=== PATIENT | female | born 1955 | race Caucasian/White ===

== ENCOUNTER 2017-11-13 06:30 | Emergency (ER) | payer OTHER ==
[~2017-11-13] VITALS: Ht 165.1 cm; Wt 63.5 kg
[~2017-11-13 06:30] MED LIST: ACETAMINOPHEN325 M1 PO; ALEVE220 M1 PO; CEFEPIME HCL1 GM IV; CEFUROXIME250 MG PO; LEVOFLOXACIN750 MG PO; MACROBID 100 M100 MG PO; MACRODANTIN100 MG PO; NITROFURANTOIN100 MG PO; OXYBUTYNIN CHLOR5 MG PO
[2017-11-13] MEDS ORDERED: CLINDAMYCIN PHOS 600 MG/ 4 ML VIAL IM ONE (07:15)
[2017-11-13] MEDS ORDERED: CLINDAMYCIN 600MG/D5W 50ML 50 ML IV ONE ×2 (07:15)
== END 2017-11-13 08:03 | disposition home or self-care (01) ==
LOC: ER 06:30
DX: K08.9 Disorder of teeth and supporting structures, unspecified (principal); K04.7 Periapical abscess without sinus
CPT/HCPCS: 93005; 99283

== ENCOUNTER → 2018-02-03 | Outpatient (CLI) | payer OTHER ==
--- NOTE | 2018-02-03 08:55 | Diagnostic Imaging Report ---
PROCEDURE:X-RAY ABDOMEN - KUB COMPARISON:Patients [facility], DX, ABDOMEN-1VIEW (KUB), 09/02/2017, 11:08. INDICATIONS:CALCULUS OF THE KIDNEY FINDINGS: Punctate calcification overlies the left kidney measuring 1-2 mm. There are no dilated loops of bowel to suggest obstruction. There are no masses. Clips in the right upper quadrant from a previous cholecystectomy. There is no evidence of free air. No acute osseous abnormalities are present. The lung bases are clear. CONCLUSION: Tiny calcification overlying the left kidney. Vasquez Bautista D.O. Dictated by: Vasquez Bautista D.O. on 02/03/2018 at 8:57 Electronically approved by: Vasquez Bautista D.O. on 02/03/2018 at 8:57
== END ==
LOC: RAD 08:18
PROVIDERS: ATTEND Urology
DX: N20.0 Calculus of kidney (principal)
CPT/HCPCS: 74018

== ENCOUNTER 2018-05-14 12:14 | Emergency (ER) | payer OTHER ==
[~2018-05-14] VITALS: Ht 165.1 cm; Wt 66.7 kg
[2018-05-14] MEDS ORDERED: SODIUM CHLORIDE 0.9% 1000ML 1,000 ML IV ONE (13:30)
[2018-05-14 13:35] LABS: CLARITY,URINE CLEAR (CLEAR); COLOR,URINE YELLOW (YELLOW); KETONES,URINE NEGATIVE (NEGATIVE); LEUKOCYTE ESTERASE ,URINE NEGATIVE (NEGATIVE); NITRITE,URINE NEGATIVE (NEGATIVE); PROTEIN,URINE DIPSTICK NEGATIVE (NEGATIVE); URINE UROBILINOGEN 0.2 mg/dL (0.2 - 1)
[2018-05-14 13:36] LABS: BILIRUBIN,URINE NEGATIVE (NEGATIVE)
[2018-05-14 13:39] LABS: BASOPHILS # (AUTO) 0.1 (0.0-0.1); BASOPHILS % 0.6 % (0.0-1.0); EOSINOPHILS # (AUTO) 0.1 (0.0-0.4); EOSINOPHILS % 1.5 % (0.0-6.0); HEMATOCRIT 38.8 % (34.2-44.1); HEMOGLOBIN 12.8 g/dL (12.0-16.0); LYMPHOCYTES # (AUTO) 1.9 (1.0-3.2); LYMPHOCYTES % 24.4 % (18.0-39.1); MEAN CORPUSCULAR HEMOGLOBIN 31.5 pg (28-32); MEAN CORPUSCULAR VOLUME 95.6 fL (81-99); MONOCYTES # (AUTO) 0.6 (0.2-0.8); MONOCYTES % 7.8 % (4.4-11.3); NEUTROPHILS # (AUTO) 5.2 (2.1-6.9); NEUTROPHILS % 65.4 % (38.7-80.0); PLATELET COUNT 220 x10e3/uL (140-360); RED BLOOD COUNT 4.06 x10e6/uL (3.6-5.1); RED CELL DISTRIBUTION WIDTH 13.1 % (11.7-14.4)
[2018-05-14 13:46] LABS: BACTERIA,URINE RARE /HPF; EPITHELIAL CELLS,URINE RARE /LPF; RBC,URINE 0-5 /HPF (0-5); WBC,URINE (MAN) 0-5 /HPF (0-5)
[2018-05-14 13:59] LABS: ALANINE AMINOTRANSFERASE 13 IU/L (0-55); ALBUMIN 4.1 g/dL (3.5-5.0); ALBUMIN/GLOBULIN RATIO 1.2 (0.8-2.0); ALKALINE PHOSPHATASE 88 IU/L (40-150); ANION GAP 11.9 mmol/L (8-16); BLOOD UREA NITROGEN 12 mg/dL (7-26); BUN/CREATININE RATIO 15 (6-25); CARBON DIOXIDE 27 mmol/L (22-29); CHLORIDE 106 mmol/L (98-107); EST GLOMERULAR FILTRATION RATE > 60 ML/MIN (60-); GLUCOSE 90 mg/dL (74-118); POTASSIUM 3.9 mmol/L (3.5-5.1); SODIUM 141 mmol/L (136-145)
--- NOTE | 2018-05-14 14:39 | Diagnostic Imaging Report ---
PROCEDURE: CT ABDOMEN AND PELVIS WITHOUT CONTRAST TECHNIQUE: The abdomen and pelvis were scanned utilizing a multidetector helical scanner from the diaphragm to the lesser trochanter after the oral administration of water. No IV contrast was administered per protocol. Coronal and sagittal multiplanar reformations were obtained. COMPARISON: Patients [facility], CT, CT ABDOMEN/PELVIS , 12/11/2016, 10:12. INDICATIONS: Left flank pain FINDINGS: ABSENCE OF INTRAVENOUS CONTRAST DECREASES SENSITIVITY FOR DETECTION OF FOCAL LESIONS AND VASCULAR PATHOLOGY. LOWER THORAX: Lung bases are grossly clear. Atherosclerotic calcification of the coronary arteries and thoracic aorta. HEPATOBILIARY: No focal hepatic lesions. No biliary ductal dilatation. Cholecystectomy clips. SPLEEN: No splenomegaly. PANCREAS: No focal masses or ductal dilatation. ADRENALS: No adrenal nodules. KIDNEYS/URETERS: 3 mm nonobstructing calculus in the left inferior pole (series 3, image 63). Punctate, nonobstructing calculus in the mid to inferior aspect (series 3, image 59). Punctate nonobstructing calculus in the right inferior pole (coronal image 46). No other renal or any ureteral calculi. No hydronephrosis, hydroureter, or evidence of obstruction. No contour abnormalities. PELVIC ORGANS/BLADDER: Bladder is unremarkable, without focal lesions, wall thickening, or bladder calculi. Uterus is absent. No adnexal masses. PERITONEUM / RETROPERITONEUM: No free air or fluid. LYMPH NODES: No lymphadenopathy. VESSELS: Atherosclerotic calcification of the abdominal aorta and iliac vessels. GI TRACT: No bowel dilation or evidence of obstruction. Appendix is well identified and normal in caliber. No pericolonic inflammatory changes. Sigmoid diverticulosis, without diverticulitis. BONES AND SOFT TISSUES: No aggressive lytic lesions. Soft tissues are grossly unremarkable. IMPRESSION: 1. no ureteral or bladder calculi, hydronephrosis, or obstruction. 2. Bilateral punctate nonobstructing calculi. 3 mm nonobstructing calculus in the left inferior pole. 3. Sigmoid diverticulosis, without diverticulitis. Ridge Guerrero M.D. Dictated by: Ridge Guerrero M.D. on 05/14/2018 at 14:43 Electronically approved by: Ridge Guerrero M.D. on 05/14/2018 at 14:43
== END 2018-05-14 16:29 | disposition home or self-care (01) ==
LOC: ER 12:14
DX: R10.9 Unspecified abdominal pain (principal); N20.0 Calculus of kidney
CPT/HCPCS: 36415; 74176; 80053; 81001; 85025; 87086; 99284; J7030

== ENCOUNTER 2018-08-31 10:54 | Inpatient (IN) | payer OTHER ==
[~2018-08-31] VITALS: Ht 167.6 cm; Wt 67.1 kg
[~2018-08-31 10:54] MED LIST changes: +BACTRIM DS TAB1 EACH PO; +CALTRATE PLUS1 EACH; +CENTRUM SILVER1 EAC3; +FENTANYL CITRATE/PF 100MCG/2 ML INJ ONE; +MIDAZOLAM HCL 2 MG/2 ML VIAL ONE
[2018-08-31] MEDS ORDERED: CEFOXITIN SOD 1 GM VIAL ONE (11:17)
[2018-08-31] MEDS ORDERED: CLINDAMYCIN 600MG / 50ML 50 ML IV ONE (11:17)
[2018-08-31] MEDS ORDERED: GENTAMICIN 80MG/NS 100 ML 200 ML IV ONE (11:17)
[2018-08-31] MEDS ORDERED: METHYLENE BLUE 1% INJ 10 ML VIAL INJ ONE (12:39)
[2018-08-31] MEDS ORDERED: ESTROGENS CONJUGATED VAGINAL CR 45 GM TUBE PV ONE (12:39)
[2018-08-31] MEDS ORDERED: BUPIVACAINE 0.25%/EPI 30ML SDV INJ ONE (12:40)
[2018-08-31] MEDS ORDERED: IOPAMIDOL 610MG/1ML 300 MG/ML VIAL IV ONE ×2 (12:40→14:47)
[2018-08-31] MEDS ORDERED: BACITRACIN 50,000 UNIT VIAL ONE (12:40)
[2018-08-31] MEDS ORDERED: HYDROMORPHONE 1MG/1ML INJ IV PRN ×2 (15:00)
[2018-08-31] MEDS ORDERED: PROMETHAZINE HCL (IM) 25 MG/ML VIAL IV PRN (15:00)
[2018-08-31] MEDS ORDERED: PROMETHAZINE HCL (IM) 25 MG/ML VIAL IM PRN (15:00)
[2018-08-31] MEDS ORDERED: HYDROCODONE/APAP 7.5MG-325MG 1 EA TAB PO PRN (15:00)
[2018-08-31] MEDS ORDERED: HYDROMORPHONE 2MG/ML 2 MG/ML ML IV PRN ×2 (15:30)
[2018-08-31] MEDS ORDERED: PROMETHAZINE 12.5MG/ NACL 0.9% 50 ML IV PRN (15:45)
[2018-08-31] MEDS ORDERED: LIDOCAINE HCL 2% LOCAL INJ 5 ML SDV VIAL INJ ONE (16:44)
[2018-08-31] MEDS ORDERED: SEVOFLURANE INHAL SOLN 250 ML PEN BTL ONE (16:44)
[2018-08-31] MEDS ORDERED: PROPOFOL IV EMULSION 10 MG/ML 20 ML VIAL ONE (16:44)
[2018-08-31] MEDS ORDERED: PHENYLEPHRINE HCL 1% 10 MG/ML VIAL ONE (16:44)
[2018-08-31] MEDS ORDERED: DEXAMETHASONE SOD PHOS INJ 4 MG/ML VIAL ONE (16:44)
[2018-08-31] MEDS ORDERED: ONDANSETRON HCL INJ 2 MG/ML VIAL ONE (16:44)
[2018-08-31 16:57] VITALS: BP 130/59
[2018-08-31 17:06] VITALS: BP 130/59
[2018-08-31] MEDS: D5.45%NS/KCL 20MEQ 1,000 ML IV SCH (17:17)
[2018-08-31 17:38] VITALS: BP 130/59
[2018-08-31] MEDS ORDERED: CEFOXITIN 1GM/ NS 50ML 50 ML IV SCH (18:00)
[2018-08-31] MEDS: CEFOXITIN SOD 1 GM VIAL IV SCH ×2 (18:21→23:09)
[2018-08-31] MEDS: ONDANSETRON HCL INJ 2 MG/ML VIAL IV PRN (19:03)
[2018-08-31] MEDS: HYDROMORPHONE 2MG/ML 2 MG/ML ML IV PRN (19:03)
[2018-08-31 19:22] VITALS: BP 115/76
[2018-08-31 20:00] VITALS: BP 115/76
[2018-09-01] VITALS (7 sets, daily range): BP systolic 90–124; BP diastolic 54–74
[2018-09-01] MEDS: D5.45%NS/KCL 20MEQ 1,000 ML IV SCH ×3 (00:28→17:54)
[2018-09-01] MEDS: HYDROMORPHONE 2MG/ML 2 MG/ML ML IV PRN (00:32)
[2018-09-01] MEDS: ONDANSETRON HCL INJ 2 MG/ML VIAL IV PRN ×2 (01:39→15:39)
[2018-09-01] MEDS: CEFOXITIN SOD 1 GM VIAL IV SCH ×4 (04:50→23:39)
[2018-09-01 04:53] LABS: BASOPHILS % 0.2 % (0.0-1.0); EOSINOPHILS % 0.1 % (0.0-6.0); HEMATOCRIT 32.2 % (34.2-44.1); HEMOGLOBIN 10.5 g/dL (12.0-16.0); LYMPHOCYTES # (AUTO) 1.4 (1.0-3.2); MEAN CORPUSCULAR HEMOGLOBIN 32.1 pg (28-32); MEAN CORPUSCULAR HGB CONC 32.6 g/dL (31-35); MEAN CORPUSCULAR VOLUME 98.5 fL (81-99); MONOCYTES # (AUTO) 0.9 (0.2-0.8); MONOCYTES % 7.4 % (4.4-11.3); NEUTROPHILS # (AUTO) 10.2 (2.1-6.9); NEUTROPHILS % 80.7 % (38.7-80.0); PLATELET COUNT 189 x10e3/uL (140-360); RED BLOOD COUNT 3.27 x10e6/uL (3.6-5.1); RED CELL DISTRIBUTION WIDTH 12.6 % (11.7-14.4)
[2018-09-01 05:14] LABS: ANION GAP 12.3 mmol/L (8-16); BLOOD UREA NITROGEN 11 mg/dL (7-26); BUN/CREATININE RATIO 15 (6-25); CALCIUM 8.8 mg/dL (8.4-10.2); CARBON DIOXIDE 24 mmol/L (22-29); CHLORIDE 106 mmol/L (98-107); CREATININE, SERUM 0.73 mg/dL (0.57-1.11); EST GLOMERULAR FILTRATION RATE > 60 ML/MIN (60-); GLUCOSE 134 mg/dL (74-118); POTASSIUM 4.3 mmol/L (3.5-5.1); SODIUM 138 mmol/L (136-145)
[2018-09-01] MEDS ORDERED: INFLUENZA VIRUS VAC SPLIT INJ 0.5 ML SYR IM ONE (09:00)
[2018-09-01 14:56] LABS: BASOPHILS % 0.3 % (0.0-1.0); EOSINOPHILS % 0.4 % (0.0-6.0); HEMATOCRIT 32.6 % (34.2-44.1); HEMOGLOBIN 10.5 g/dL (12.0-16.0); LYMPHOCYTES # (AUTO) 1.3 (1.0-3.2); LYMPHOCYTES % 12.5 % (18.0-39.1); MEAN CORPUSCULAR HEMOGLOBIN 31.7 pg (28-32); MEAN CORPUSCULAR HGB CONC 32.2 g/dL (31-35); MEAN CORPUSCULAR VOLUME 98.5 fL (81-99); MONOCYTES # (AUTO) 0.7 (0.2-0.8); MONOCYTES % 6.7 % (4.4-11.3); NEUTROPHILS # (AUTO) 8.1 (2.1-6.9); NEUTROPHILS % 79.3 % (38.7-80.0); PLATELET COUNT 176 x10e3/uL (140-360); RED BLOOD COUNT 3.31 x10e6/uL (3.6-5.1); RED CELL DISTRIBUTION WIDTH 12.6 % (11.7-14.4)
[2018-09-01 15:20] LABS: ANION GAP 12.9 mmol/L (8-16); BLOOD UREA NITROGEN 8 mg/dL (7-26); BUN/CREATININE RATIO 12 (6-25); CALCIUM 8.1 mg/dL (8.4-10.2); CARBON DIOXIDE 24 mmol/L (22-29); CHLORIDE 102 mmol/L (98-107); CREATININE, SERUM 0.68 mg/dL (0.57-1.11); EST GLOMERULAR FILTRATION RATE > 60 ML/MIN (60-); GLUCOSE 119 mg/dL (74-118); POTASSIUM 3.9 mmol/L (3.5-5.1); SODIUM 135 mmol/L (136-145)
[2018-09-02] VITALS (7 sets, daily range): BP systolic 108–119; BP diastolic 59–65
[2018-09-02] MEDS: CEFOXITIN SOD 1 GM VIAL IV SCH ×3 (05:26→13:20)
[2018-09-02 05:27] LABS: BASOPHILS % 0.2 % (0.0-1.0); EOSINOPHILS # (AUTO) 0.1 (0.0-0.4); EOSINOPHILS % 0.9 % (0.0-6.0); HEMATOCRIT 33.5 % (34.2-44.1); HEMOGLOBIN 11.1 g/dL (12.0-16.0); LYMPHOCYTES # (AUTO) 1.5 (1.0-3.2); LYMPHOCYTES % 17.4 % (18.0-39.1); MEAN CORPUSCULAR HEMOGLOBIN 32.5 pg (28-32); MEAN CORPUSCULAR HGB CONC 33.1 g/dL (31-35); MONOCYTES # (AUTO) 0.8 (0.2-0.8); MONOCYTES % 9.6 % (4.4-11.3); NEUTROPHILS # (AUTO) 6.1 (2.1-6.9); NEUTROPHILS % 71.6 % (38.7-80.0); PLATELET COUNT 158 x10e3/uL (140-360); RED BLOOD COUNT 3.42 x10e6/uL (3.6-5.1); RED CELL DISTRIBUTION WIDTH 12.5 % (11.7-14.4)
[2018-09-02 05:37] LABS: BLOOD UREA NITROGEN 6 mg/dL (7-26); BUN/CREATININE RATIO 9 (6-25); CALCIUM 8.3 mg/dL (8.4-10.2); CARBON DIOXIDE 24 mmol/L (22-29); CHLORIDE 104 mmol/L (98-107); CREATININE, SERUM 0.68 mg/dL (0.57-1.11); EST GLOMERULAR FILTRATION RATE > 60 ML/MIN (60-); GLUCOSE 105 mg/dL (74-118); SODIUM 137 mmol/L (136-145)
[2018-09-02] MEDS: D5.45%NS/KCL 20MEQ 1,000 ML IV SCH (06:49)
[2018-09-02] MEDS ORDERED: ACETAMINOPHEN/CODEINE 300MG - 30MG TAB PO PRN (10:30)
[2018-09-02] MEDS ORDERED: LEVAQUIN500 MG PO (17:29)
[2018-09-02] MEDS ORDERED: TYLENOL WITH C1 EACH PO (17:31)
--- NOTE | 2018-09-28 07:56 | Operative Report ---
DATE OF PROCEDURE: August 31, 2018 PREOPERATIVE DIAGNOSES 1. Stress-type urinary incontinence. 2. Cystocele. 3. History of urolithiasis. POSTOPERATIVE DIAGNOSES 1. Stress-type urinary incontinence. 2. Cystocele. 3. History of urolithiasis. OPERATIONS PERFORMED 1. Repair of large cystocele. 2. Utilization of a graft in cystocele repair. 3. Pubovaginal sling. 4. Cystourethroscopy with bilateral ureteral catheterization and retrograde ureteropyelography (separate procedure performed for the history of urolithiasis). 5. Interpretation of retrograde ureteropyelography. 6. Supervision of fluoroscopy. No radiologist present. ANESTHESIA: General. COMPLICATIONS: None. CAN CONVEYOR FEEDER: Mario Romano MD CLINICAL SUMMARY: Ricardo Santos is a 63-year-old woman with stress incontinence and a grade 3 cystocele. She has a history of lithotripsy for stones. She is brought for the above procedures. She is aware of the risks of bleeding, infection, injury to adjacent structures, urinary retention, need for additional procedures, and failure of the procedure. She understood all these risks and elected to proceed. OPERATIVE PROCEDURE IN DETAIL: Informed consent was verified. Ricardo Santos was properly identified, taken to the operating room, placed on the operating table in supine position. Anesthesia was uneventfully begun. The patient was then carefully and gently re-positioned in the dorsal lithotomy position with all pressure points well padded. Her abdomen, genitalia, and perineum were shaved, prepared, and draped in usual sterile fashion. Labial stay sutures were utilized. Marcaine with epinephrine was utilized to infiltrate submucosally in the midline of the anterior vaginal wall. This infiltration was followed by an incision. We then developed bilateral vaginal wall flaps. We dissected from the distal urethra to the cephalad-most extent of the anterior vaginal wall. Once we finished the lateral dissection, we pierced the endopelvic fascia bilaterally, taking care to stay lateral to avoid injury to the periurethral neurovascular complexes. Once this was performed, we utilized heavy Vicryl suture in interrupted fashion to approximate the 2 cut edges of the endopelvic fascia and performing a cystocele repair from the bladder neck to the cephalad-most extent of the vaginal dissection. This resulted in complete reduction of the patient's severe cystocele. Galicia catheter was placed. Fascia tristen graft which was hydrated in antibiotic irrigant, we then cut it to shape, took 2 heavy PDS sutures, and placed them in a helical fashion through each end of the graft. We then utilized the Voxie needle system, first on the left, then on the right. We hugged the posterior pubis and pierced through the anterior abdominal wall and then dragged along with it 1 suture pair. Once this was done bilaterally, we utilized chromic suture to secure the graft to its proper position so that it fully supports the cystocele. Then, we brought it to extend down to the distal urethra to serve as a pubovaginal sling. The Voxie lateral suture passer was then utilized to take 1 strand of each PDS suture and tunnel it suprapubically subcutaneously to join its contralateral counterpart. The sutures were then tied down to the level of the skin and the knot was allowed to fall deep within the suprapubic fat pad, thus ensuring a non-lifting, non-constricting, non-obstructing sling. Copious irrigation was performed of all incisions. The abdominal incisions were approximated with 4-0 Monocryl suture in interrupted subcuticular fashion. The vaginal incision, following minimal trimming of the vaginal wall, was approximated with heavy Vicryl suture in running fashion. The Galicia catheter was removed. Cystoscopy was performed. Panendoscopy of the urinary bladder revealed no suspicious mucosal lesions. No tumors, no stones, and no diverticula. No suspicious mucosal lesions were identified. Ureteral catheter was used to cannulate each ureter and retrograde ureteropyelograms were performed. Interpretation of retrograde ureteropyelography: Contrast was instilled in retrograde fashion bilaterally. There were no tumors, no stones, no diverticula. There were bifid collecting systems bilaterally. Unobstructed drainage was observed bilaterally fluoroscopically. The cystoscope was withdrawn. The Galicia catheter was placed. A vaginal packing was placed. Sterile dressings were applied to the suprapubic area. The labial stay sutures were removed. The patient was uneventfully reversed from anesthesia and taken to the recovery room in stable condition. There were no complications to the procedure. Patient tolerated the procedure well. We will admit the patient and plan on routine postoperative care. Job#: [id number]
== END 2018-09-02 18:10 | disposition home or self-care (01) | DRG 746 ==
LOC: OR 10:54 → PACU V 14:57 → IMCU 16:53 → MED/SURG 09-01 15:36
PROVIDERS: ADMIT Internal Medicine; ATTEND Internal Medicine
PROC: 0TSD0ZZ Reposition Urethra, Open Approach (ICD-10-PCS; 2018-08-31)
PROC: 0T788ZZ Dilation of Bilateral Ureters, Via Natural or Artificial Opening Endoscopic (ICD-10-PCS; 2018-08-31)
PROC: BT141ZZ Fluoroscopy of Kidneys, Ureters and Bladder using Low Osmolar Contrast (ICD-10-PCS; 2018-08-31)
PROC: 0JUC0JZ Supplement of Pelvic Region Subcutaneous Tissue and Fascia with Synthetic Substitute, Open Approach (ICD-10-PCS; principal; 2018-08-31 13:00)
PROC: 0UQG0ZZ Repair Vagina, Open Approach (ICD-10-PCS; 2018-08-31 13:00)
DX: N81.10 Cystocele, unspecified (principal); E87.1 Hypo-osmolality and hyponatremia; P96.89 Other specified conditions originating in the perinatal period; E66.9 Obesity, unspecified; Z68.23 Body mass index [BMI] 23.0-23.9, adult; D64.9 Anemia, unspecified; N81.6 Rectocele
CPT/HCPCS: 36415; 74420; 80048; 85025; 93005; J0694; J1100; J1580; J2001; J2250; J2370; J2405

== ENCOUNTER → 2018-12-01 | Outpatient (CLI) | payer OTHER ==
[~2018-12-01] MED LIST changes: -FENTANYL CITRATE/PF 100MCG/2 ML INJ ONE; +LEVAQUIN500 MG PO; -MIDAZOLAM HCL 2 MG/2 ML VIAL ONE; +TYLENOL WITH C1 EACH PO
--- NOTE | 2018-12-01 12:47 | Diagnostic Imaging Report ---
Exam: Abdominal film Clinical History: Renal calculi Comparison: None. DISCUSSION: 3.5 mm calcification projects over the left renal shadow. No definite calcifications projecting over the right renal shadow though evaluation is limited secondary to overlying bowel contents. No calcifications project over the expected ureteral courses. Bowel gas pattern is nonobstructive. Regional skeletal structures are grossly intact. Multiple surgical clips project over the right upper quadrant of the abdomen likely related to cholecystectomy. IMPRESSION: Left renal calculus as above. Signed by: Dr. Duarte Peacock M.D. on 12/01/2018 12:43 PM
== END ==
LOC: RAD 12:03
PROVIDERS: ATTEND Urology
DX: N20.0 Calculus of kidney (principal)
CPT/HCPCS: 74018

== ENCOUNTER → 2019-07-06 | Outpatient (CLI) | payer OTHER ==
--- NOTE | 2019-07-06 11:48 | Diagnostic Imaging Report ---
Abdomen, 1 view. History: Renal calculus. Comparison: 12/01/2018. Findings: Air is scattered throughout nondilated small and large bowel. At least 2 calcifications are projected over the left kidney, measuring 4 and 7 mm. Surgical clips are again noted in the right upper quadrant. The osseous structures are intact. IMPRESSION: Increase in number and size of left renal calculi. Signed by: Anand Duggan on 07/06/2019 11:45 AM
== END ==
LOC: RAD 10:59
PROVIDERS: ATTEND Urology
DX: N20.0 Calculus of kidney (principal)
CPT/HCPCS: 74018

== ENCOUNTER 2019-12-01 08:32 | Inpatient (IN) | payer OTHER ==
[~2019-12-01] VITALS: Ht 165.1 cm; Wt 67.6 kg
[~2019-12-01 08:32] MED LIST changes: -CALTRATE PLUS1 EACH; +CALTRATE PLUS1 EACH PO; -CENTRUM SILVER1 EAC3; +CENTRUM SILVER1 EAC3 PO
[2019-12-01] MEDS ORDERED: CEFTRIAXONE SOD 1 GM/NS 50 ML 50 ML IV STA (08:40)
[2019-12-01] MEDS ORDERED: SODIUM CHLORIDE 0.9% 1000ML 1,000 ML IV STA (08:40)
[2019-12-01] MEDS ORDERED: KETOROLAC TROMETHAMINE 30 MG/ML VIAL IV STA (08:40)
[2019-12-01] MEDS ORDERED: ONDANSETRON HCL INJ 2MG/ML 2ML 2 MG/ML VIAL IV STA (08:40)
[2019-12-01] MEDS ORDERED: MORPHINE SULFATE INJ 4 MG/ML INJ 1ML IV STA (08:40)
[2019-12-01 09:11] LABS: BASOPHILS # (AUTO) 0.1 (0.0-0.1); BASOPHILS % 0.5 % (0.0-1.0); EOSINOPHILS # (AUTO) 0.1 (0.0-0.4); EOSINOPHILS % 0.8 % (0.0-6.0); HEMATOCRIT 38.3 % (34.2-44.1); HEMOGLOBIN 12.5 g/dL (12.0-16.0); LYMPHOCYTES # (AUTO) 3.1 (1.0-3.2); LYMPHOCYTES % 32.2 % (18.0-39.1); MEAN CORPUSCULAR HEMOGLOBIN 31.2 pg (28-32); MEAN CORPUSCULAR HGB CONC 32.6 g/dL (31-35); MEAN CORPUSCULAR VOLUME 95.5 fL (81-99); MONOCYTES # (AUTO) 0.7 (0.2-0.8); MONOCYTES % 7.1 % (4.4-11.3); NEUTROPHILS # (AUTO) 5.6 (2.1-6.9); PLATELET COUNT 227 x10e3/uL (140-360); RED BLOOD COUNT 4.01 x10e6/uL (3.6-5.1); RED CELL DISTRIBUTION WIDTH 12.6 % (11.7-14.4)
[2019-12-01 09:24] LABS: CLARITY,URINE HAZY (CLEAR); COLOR,URINE YELLOW (YELLOW); KETONES,URINE NEGATIVE (NEGATIVE); LEUKOCYTE ESTERASE ,URINE NEGATIVE (NEGATIVE); NITRITE,URINE NEGATIVE (NEGATIVE); PROTEIN,URINE DIPSTICK NEGATIVE (NEGATIVE); URINE UROBILINOGEN 0.2 mg/dL (0.2 - 1)
[2019-12-01 09:25] LABS: BILIRUBIN,URINE NEGATIVE (NEGATIVE)
[2019-12-01 09:27] LABS: BACTERIA,URINE FEW /HPF; EPITHELIAL CELLS,URINE FEW /LPF; RBC,URINE 21-50 /HPF (0-5); WBC,URINE (MAN) 0-5 /HPF (0-5)
[2019-12-01 09:29] LABS: ALANINE AMINOTRANSFERASE 16 IU/L (0-55); ALBUMIN 3.9 g/dL (3.5-5.0); ALBUMIN/GLOBULIN RATIO 1.3 (0.8-2.0); ALKALINE PHOSPHATASE 96 IU/L (40-150); ANION GAP 14.9 mmol/L (8-16); BLOOD UREA NITROGEN 15 mg/dL (7-26); BUN/CREATININE RATIO 19 (6-25); CALCIUM 9.4 mg/dL (8.4-10.2); CARBON DIOXIDE 24 mmol/L (22-29); CHLORIDE 105 mmol/L (98-107); CREATININE, SERUM 0.77 mg/dL (0.57-1.11); EST GLOMERULAR FILTRATION RATE > 60 ML/MIN (60-); GLUCOSE 107 mg/dL (74-118); POTASSIUM 3.9 mmol/L (3.5-5.1); SODIUM 140 mmol/L (136-145)
[2019-12-01] MEDS ORDERED: TAMSULOSIN HCL 0.4 MG CAP PO SCH (09:45)
--- NOTE | 2019-12-01 10:30 | Diagnostic Imaging Report ---
Exam: CT abdomen and pelvis Clinical history: Nephrolithiasis Technique: Helical images of the abdomen and pelvis were obtained without contrast Comparison: CT abdomen and pelvis, May 14, 2018 DOSE REDUCTION: The exams was performed according to the departmental dose-optimization program which includes automated exposure control, adjustment of the mA and/or kV according to patient size and/or use of iterative reconstruction technique. Findings: The lung bases are clear. There is no evidence of pleural effusion. The cardiac size is within normal limits. The liver, spleen, pancreas and adrenal glands are unremarkable. The gallbladder has been removed. There is interval development of bilateral nephrolithiasis with the largest one on the right measuring 5.3 mm in the largest one on the left measuring 10.9 mm. In addition, there are 3 ureteral stones in the left mid ureter measuring 1.6, 4.9, and 10.1 mm causing moderate left hydronephrosis and hydroureter. A 2.2 mm calcification is also noted at the base of the bladder consistent with a small stone. The small and large bowels are normal in caliber. Sigmoid diverticulosis is noted without evidence of acute diverticulitis. There is no evidence of lymphadenopathy or free fluid. The aorta and IVC are normal in caliber. The uterus has been removed. Ovaries are not visualized. Impression: 1. There are 3 left ureterolithiasis measuring up to 10.1 mm in diameter with moderate left hydronephrosis and hydroureter. 2. Bilateral nephrolithiasis. 3. Sigmoid diverticulosis without CT evidence of acute diverticulitis. 4. Status post hysterectomy. 5. Status post cholecystectomy. Signed by: Dr. William Antony MD on 12/01/2019 10:27 AM
[2019-12-01] MEDS: ONDANSETRON HCL INJ 2MG/ML 2ML 2 MG/ML VIAL IV PRN ×2 (13:13→23:42)
[2019-12-01] MEDS: CEFTRIAXONE SOD 1 GM/NS 50 ML 50 ML IV SCH (13:13)
[2019-12-01] MEDS: MORPHINE SULFATE INJ 4 MG/ML INJ 1ML IV PRN ×2 (13:13→23:42)
[2019-12-01] MEDS: SODIUM CHLORIDE 0.9% 1000ML 1,000 ML IV SCH ×2 (13:13→23:20)
--- NOTE | 2019-12-01 20:45 | Diagnostic Imaging Report ---
EXAM: ABDOMEN-1VIEW (KUB), DATE: 12/01/2019 8:06 PM INDICATION: Left kidney stone. Pain. COMPARISON: KUB 07/06/2019. CT AP dated 12/01/2019. FINDINGS: LINES/TUBES: None BOWEL PATTERN: No evidence for obstruction. SOFT TISSUES: 0.8 cm calculus projected on the expected location of the mid to distal left ureter. 0.5 cm calculus projected just superior to it. Additional left ureteral calculi are best seen on the prior CT examination. 0.7 cm, is projected on the left flank. Cholecystectomy clips. LUNG BASES: Not included BONES: Degenerative changes of the lumbar spine. IMPRESSION: Left ureterolithiasis as detailed above. Signed by: Dr. Jalil Lin M.D. on 12/01/2019 8:42 PM
[2019-12-01] MEDS: FAMOTIDINE 20 MG/2 ML VIAL IV SCH (22:14)
--- NOTE | 2019-12-01 22:28 | NUR ---
Pt arrived from ED as new admit to room 206 with diagnosis of Hydronephrosis concurrent with and due to calculi. Pt on IVF (NS at 125ml/hr). Ambulatory in room prn. Pt has intermittent left flank pain and being medicated accordingly. Pt was seen by Dr. Moreno Romano in the ED and has planned for possible surgery on Friday (12/03/19). Call guzman within reach. Will monitor pt closely.
[2019-12-01 22:59] VITALS: BP 167/89
[2019-12-01 23:20] VITALS: BP 156/85
[2019-12-01] MEDS ORDERED: TAMSULOSIN HCL 0.4 MG CAP PO ONE (23:45)
[2019-12-02] VITALS (9 sets, daily range): BP systolic 113–167; BP diastolic 65–89
[2019-12-02] MEDS: SODIUM CHLORIDE 0.9% 1000ML 1,000 ML IV SCH ×3 (01:46→18:41)
[2019-12-02 05:15] LABS: BASOPHILS % 0.7 % (0.0-1.0); EOSINOPHILS # (AUTO) 0.1 (0.0-0.4); HEMATOCRIT 34.4 % (34.2-44.1); HEMOGLOBIN 11.1 g/dL (12.0-16.0); LYMPHOCYTES # (AUTO) 1.5 (1.0-3.2); LYMPHOCYTES % 24.3 % (18.0-39.1); MEAN CORPUSCULAR HEMOGLOBIN 31.5 pg (28-32); MEAN CORPUSCULAR HGB CONC 32.3 g/dL (31-35); MEAN CORPUSCULAR VOLUME 97.7 fL (81-99); MONOCYTES # (AUTO) 0.6 (0.2-0.8); NEUTROPHILS % 64.7 % (38.7-80.0); PLATELET COUNT 172 x10e3/uL (140-360); RED BLOOD COUNT 3.52 x10e6/uL (3.6-5.1); RED CELL DISTRIBUTION WIDTH 12.6 % (11.7-14.4)
[2019-12-02 05:41] LABS: ALANINE AMINOTRANSFERASE 12 IU/L (0-55); ALBUMIN 3.2 g/dL (3.5-5.0); ALBUMIN/GLOBULIN RATIO 1.2 (0.8-2.0); ALKALINE PHOSPHATASE 77 IU/L (40-150); ANION GAP 13.2 mmol/L (8-16); BLOOD UREA NITROGEN 12 mg/dL (7-26); BUN/CREATININE RATIO 17 (6-25); CALCIUM 8.6 mg/dL (8.4-10.2); CARBON DIOXIDE 23 mmol/L (22-29); CHLORIDE 110 mmol/L (98-107); CREATININE, SERUM 0.71 mg/dL (0.57-1.11); EST GLOMERULAR FILTRATION RATE > 60 ML/MIN (60-); GLUCOSE 84 mg/dL (74-118); POTASSIUM 4.2 mmol/L (3.5-5.1); SODIUM 142 mmol/L (136-145)
--- NOTE | 2019-12-02 07:00 | NUR ---
BEDSIDE SHIFT REPORT RECEIVED FROM GLASS MELT OPERATOR RN. PT DENIES NEEDS AT THIS TIME.
[2019-12-02] MEDS: CEFTRIAXONE SOD 1 GM/NS 50 ML 50 ML IV SCH (08:51)
[2019-12-02] MEDS: FAMOTIDINE 20 MG/2 ML VIAL IV SCH ×2 (08:51→17:03)
[2019-12-02] MEDS ORDERED: LIDOCAINE HCL 2% LOCAL INJ 5 ML SDV VIAL INJ ONE (15:28)
[2019-12-02] MEDS ORDERED: SEVOFLURANE INHAL SOLN 250 ML PEN BTL ONE (15:28)
[2019-12-02] MEDS ORDERED: ONDANSETRON HCL INJ 2MG/ML 2ML 2 MG/ML VIAL ONE (15:28)
[2019-12-02] MEDS ORDERED: DEXAMETHASONE SOD PHOS INJ 4 MG/ML VIAL ONE (15:28)
[2019-12-02] MEDS ORDERED: PROPOFOL IV EMULSION 10 MG/ML 20 ML VIAL ONE (15:28)
--- NOTE | 2019-12-02 19:10 | NUR ---
Patient visited in room during nursing rounds. Patient alert and oriented x3. No distress or discomfort noted at this time. Ambulatory in room prn. Family and friends at bedside visiting. On IVF (NS at 125ml/hr). Pt on scheduled IV antibiotic treatment. Pt scheduled for surgery tomorrow by Dr. Romano. Call thomas within reach.
--- NOTE | 2019-12-02 21:13 | NUR ---
Patient agreed and signed consent form for procedure (Cystoscopy, Retrograde Pyelograms, Insertion of left stent, possible left ureteroscopy, possible laser, indicated procedures) scheduled tomorrow (12/03/19).
[2019-12-03] VITALS (7 sets, daily range): BP systolic 136–153; BP diastolic 73–89
[2019-12-03] MEDS: SODIUM CHLORIDE 0.9% 1000ML 1,000 ML IV SCH ×3 (00:10→13:05)
--- NOTE | 2019-12-03 05:00 | NUR ---
Dr. Gongora visited pt in room during rounds. MD aware pt scheduled for procedure today by Dr. Romano.
[2019-12-03] MEDS: FAMOTIDINE 20 MG/2 ML VIAL IV SCH ×2 (10:01→17:40)
[2019-12-03] MEDS: CEFTRIAXONE SOD 1 GM/NS 50 ML 50 ML IV SCH (10:01)
--- NOTE | 2019-12-03 14:25 | NUR ---
PT WENT TO SURGERY IN SAFE CONDITION
[2019-12-03] MEDS ORDERED: MIDAZOLAM HCL 2 MG/2 ML VIAL ONE (14:47)
[2019-12-03] MEDS ORDERED: FENTANYL CITRATE/PF 100MCG/2 ML INJ ONE (14:47)
[2019-12-03] MEDS ORDERED: IOPAMIDOL 300MG/ML 50ML INFUS..BTL IV ONE (15:19)
[2019-12-03] MEDS ORDERED: B&O 60MG R/S 60 MG SUPP PR ONE (15:19)
[2019-12-03] MEDS ORDERED: B&O 60MG R/S 60 MG SUPP PR PRN (16:00)
[2019-12-03] MEDS: PHENAZOPYRIDINE HCL 100 MG TAB PO SCH (17:40)
[2019-12-03] MEDS ORDERED: DOCUSATE SODIUM 100 MG CAP PO PRN (18:00)
[2019-12-03] MEDS ORDERED: HYDROCODONE/APAP 5MG-325MG TAB PO PRN ×2 (18:00→19:00)
--- NOTE | 2019-12-03 18:30 | NUR ---
Patient has voided since s/p stent placement
[2019-12-03] MEDS: OXYBUTYNIN CHLORIDE 5 MG TAB PO SCH (20:55)
[2019-12-04] VITALS: BP 117/69
[2019-12-04] MEDS: SODIUM CHLORIDE 0.9% 1000ML 1,000 ML IV SCH (01:37)
[2019-12-04 04:00] VITALS: BP 138/93
[2019-12-04 08:20] VITALS: BP 128/74
[2019-12-04] MEDS: PHENAZOPYRIDINE HCL 100 MG TAB PO SCH (09:32)
[2019-12-04] MEDS: OXYBUTYNIN CHLORIDE 5 MG TAB PO SCH (09:32)
[2019-12-04] MEDS: CEFTRIAXONE SOD 1 GM/NS 50 ML 50 ML IV SCH (09:32)
[2019-12-04] MEDS: FAMOTIDINE 20 MG/2 ML VIAL IV SCH (09:32)
[2019-12-04 10:59] VITALS: BP 128/74
[2019-12-04 11:52] VITALS: BP 122/77
--- NOTE | 2019-12-25 11:32 | Discharge Summary ---
who presented with left flank pain and was found to have a left kidney stone. She was seen by urologist, Dr. Romano, who did a cystoscopy with intervention. Please see his note for full details. Once the image was done, the patient was cleared by Urology and she is able to be discharged home with followup in 1 to 2 weeks with me as well as Dr. Romano. Please see hospital chart for details. MD WENDY Desir/KAROLINA /[id number]
--- NOTE | 2020-01-09 18:31 | Operative Report ---
DATE OF PROCEDURE: 12/03/2019 SURGEON: Moreno Romano MD PREOPERATIVE DIAGNOSES: 1. Left ureterolithiasis. 2. Urinary tract infection. 3. Microhematuria. POSTOPERATIVE DIAGNOSES: 1. Left ureterolithiasis. 2. Urinary tract infection. 3. Microhematuria. 4. Stress type urinary incontinence. 5. Grade 3 cystocele. 6. Atrophic (senile) vaginitis. 7. Grade 2 vaginal cuff prolapse. OPERATIONS PERFORMED: 1. Cystourethroscopy with bilateral ureteral catheterization and retrograde ureteropyelography (separate procedure performed for hematuria and urinary tract infections). 2. Interpretation of retrograde ureteropyelography. 3. Supervision of fluoroscopy, no radiologist present. 4. Left ureteroscopy with holmium laser lithotripsy, extraction of stones, and placement of a stent (separate procedure performed for the left ureterolithiasis). 5. Radiological services with supervision and interpretation of ureteroscopy. 6. Pelvic examination under anesthesia. ANESTHESIA: General. COMPLICATIONS: None. CLINICAL SUMMARY: This patient is a 64-year-old woman with the above preoperative diagnoses. She was brought for the above procedures. She has failed to pass her stone. She is aware of the risks of bleeding, infection, injury to adjacent structures. She understands she will have a temporary indwelling ureteral stent, requires followup and removal. She understood all these risks and elected to proceed. OPERATIVE PROCEDURE IN DETAIL: Informed consent was verified, Ricardo Santos was properly identified and taken to the operating room, and placed on the cystoscopy table in supine position. Anesthesia was uneventfully begun. The patient was then carefully gently repositioned in dorsal lithotomy position with all pressure points well padded. Her genitalia were prepared and draped in usual sterile fashion. The cystoscope sheath with obturator in place was atraumatically inserted the patient's urethra and bladder was drained. Panendoscopy of the bladder revealed no suspicious mucosal lesions, no tumors, and no stones. Normally positioned configured ureteral orifices were identified. The ureteral catheter was used to cannulate each ureter and retrograde ureteral pyelograms were performed. A guidewire was then placed in the left ureter and guided to the level of the patient's kidney. A semi-rigid ureteroscope was then placed alongside the guidewire and guided to the patient's obstructing ureteral stone. Holmium laser lithotripsy was then performed to fragment the stone, basket was then utilized to extract it. Then, with cystoscopic and fluoroscopic guidance a left-sided indwelling ureteral stent was then placed to coil the patient's kidneys as well as the patient's bladder. The retaining suture was cut short. Interpretation of retrograde ureteropyelography contrast was instilled in retrograde fashion bilaterally. There was a 5 mm stone on the right-hand side. There was large stone in left kidney. The stent was in good position, coiled the patient's kidneys as well as the patient's bladder at the end of the case. There was a bifid collecting systems present bilaterally. There was left-sided hydronephrosis present. The patient's bladder was drained. Cystoscope was withdrawn. Pelvic examination under anesthesia revealed a grade 3 cystocele with atrophic (senile) vaginitis. There was a grade 2 vaginal cuff prolapse. No suspicious mucosal lesions were identified. There were no obvious mucosal lesions. The patient was then uneventfully reversed from anesthesia and taken to recovery room in stable condition. There were no complications of the procedure. She tolerated the procedure well. Explicit postoperative instructions were given. We will plan on returning the patient to the operating room for left ESWL. Following this, another procedure several weeks later, a left ureteroscopy with holmium laser standby will be performed, the right stone at a later time as well. Moreno Romano MD [place]/[facility] /[id number]
== END 2019-12-04 13:39 | disposition home or self-care (01) | DRG 661 ==
LOC: ER 08:32 → ERHOLD 11:04 → MED/SURG2 22:40
PROVIDERS: ADMIT Internal Medicine; ATTEND Internal Medicine
PROC: 0T778DZ Dilation of Left Ureter with Intraluminal Device, Via Natural or Artificial Opening Endoscopic (ICD-10-PCS; 2019-12-03)
PROC: BT141ZZ Fluoroscopy of Kidneys, Ureters and Bladder using Low Osmolar Contrast (ICD-10-PCS; 2019-12-03)
PROC: 0TC78ZZ Extirpation of Matter from Left Ureter, Via Natural or Artificial Opening Endoscopic (ICD-10-PCS; principal; 2019-12-03 15:19)
DX: N13.2 Hydronephrosis with renal and ureteral calculous obstruction (principal); I10 Essential (primary) hypertension; N32.81 Overactive bladder; N95.2 Postmenopausal atrophic vaginitis; N39.0 Urinary tract infection, site not specified; D64.9 Anemia, unspecified; K21.9 Gastro-esophageal reflux disease without esophagitis; N81.10 Cystocele, unspecified; N39.46 Mixed incontinence; N76.0 Acute vaginitis; Z87.442 Personal history of urinary calculi; Z87.440 Personal history of urinary (tract) infections
CPT/HCPCS: 36415; 74018; 74176; 74420; 80053; 81001; 85025; 87086; 96360; 99284; C1758; C2617; J0696; J1100; J1885; J2001; J2250; J2270; J2405; J3010; J7030

== ENCOUNTER → 2020-01-19 | Day surgery (SDC) | payer OTHER ==
[~2020-01-19] MED LIST changes: +B&O 60MG R/S 60 MG SUPP PR ONE; +CEFEPIME 1GM/NS 0.9% 50 ML 50 ML IV ONE; +DEXAMETHASONE SOD PHOS INJ 4 MG/ML VIAL ONE; +FENTANYL CITRATE/PF 100MCG/2 ML INJ ONE; +GENTAMICIN 80MG/NS 100 ML 200 ML IV ONE; +IOPAMIDOL 300MG/ML 50ML INFUS..BTL IV ONE; +LIDOCAINE HCL 2% LOCAL INJ 5 ML SDV VIAL INJ ONE; +MIDAZOLAM HCL 2 MG/2 ML VIAL ONE; +ONDANSETRON HCL INJ 2MG/ML 2ML 2 MG/ML VIAL ONE; +OXYBUTYNIN CHLOR5 M1 PO; +PROPOFOL IV EMULSION 10 MG/ML 20 ML VIAL ONE; +SEVOFLURANE INHAL SOLN 250 ML PEN BTL ONE
[2020-01-19 07:02] LABS: BASOPHILS % 0.7 % (0.0-1.0); EOSINOPHILS # (AUTO) 0.1 (0.0-0.4); HEMATOCRIT 40.2 % (34.2-44.1); LYMPHOCYTES # (AUTO) 1.6 (1.0-3.2); MEAN CORPUSCULAR HEMOGLOBIN 31.5 pg (28-32); MEAN CORPUSCULAR HGB CONC 32.3 g/dL (31-35); MEAN CORPUSCULAR VOLUME 97.3 fL (81-99); MONOCYTES # (AUTO) 0.5 (0.2-0.8); MONOCYTES % 9.1 % (4.4-11.3); NEUTROPHILS # (AUTO) 3.6 (2.1-6.9); NEUTROPHILS % 60.9 % (38.7-80.0); PLATELET COUNT 198 x10e3/uL (140-360); RED BLOOD COUNT 4.13 x10e6/uL (3.6-5.1); RED CELL DISTRIBUTION WIDTH 12.7 % (11.7-14.4)
[2020-01-19 07:23] LABS: ANION GAP 10.8 mmol/L (8-16); BLOOD UREA NITROGEN 16 mg/dL (7-26); BUN/CREATININE RATIO 20 (6-25); CALCIUM 9.2 mg/dL (8.4-10.2); CARBON DIOXIDE 26 mmol/L (22-29); CHLORIDE 108 mmol/L (98-107); CREATININE, SERUM 0.79 mg/dL (0.57-1.11); EST GLOMERULAR FILTRATION RATE > 60 ML/MIN (60-); GLUCOSE 93 mg/dL (74-118); POTASSIUM 3.8 mmol/L (3.5-5.1); SODIUM 141 mmol/L (136-145)
--- NOTE | 2020-01-19 07:41 | Diagnostic Imaging Report ---
Abdomen/KUB INDICATION: Renal stone, ureteral stents ^ ORDERS IN RADIOLOGY ^[id number] ^0710 ^DAY SURGERY ROOM 2 STAT COMPARISON: Abdomen x-ray 12/01/2019, CT abdomen/pelvis 12/01/2019. FINDINGS: Portable, supine image obtained at 0711 hours. Medical Devices: Left ureteral stent has been placed. The proximal and distal loops are well formed. There is a 3 to 4 mm calculus superimposed over the distal aspect of the stent. Cholecystectomy clips in the right upper quadrant. Bowel: Unremarkable bowel gas pattern. No dilated bowel loops Free air: None Abdominal calcifications: There is a 4 mm calculus over the lower pole shadow of the right kidney. There are calculi or retained contrast in several calyces in the left kidney. The largest measures 6 mm. Organomegaly: None Lung bases: Clear. Bones: Mild degenerative changes of the lower lumbar spine IMPRESSION: 1. Left ureteral stent. 2. Calculus adjacent to or within the distal left ureter. Multiple intrarenal calculi or retained contrast in the left kidney. 3. 4 mm calculus in the lower pole of the right kidney. Signed by: Dr. Mario Gurrola MD on 01/19/2020 7:37 AM
[2020-01-19 10:15] VITALS: BP 126/79
--- NOTE | 2020-01-19 11:13 | Operative Report ---
DATE OF PROCEDURE: 01/19/2020 SURGEON: Moreno Romano MD PREOPERATIVE DIAGNOSIS: Left nephrolithiasis. POSTOPERATIVE DIAGNOSIS: Left nephrolithiasis. PROCEDURE PERFORMED: Left extracorporeal shockwave lithotripsy. ANESTHESIA: General. COMPLICATIONS: None. CLINICAL SUMMARY: Ricardo Santos is a 65-year-old woman with large volume of left urolithiasis. She has undergone a left ureteroscopy with laser lithotripsy, insertion of stent. She is brought to the operating room today to manage her left nephrolithiasis. She is aware of the risks of bleeding, infection, injury to adjacent structures, need for additional procedures and elected to proceed. OPERATIVE PROCEDURE IN DETAIL: Informed consent was verified. Ricardo Santos was properly identified, taken to the operating room, placed on the lithotripsy table. Anesthesia was uneventfully begun. The patient's left nephrolithiasis was localized with biplanar fluoroscopy. A total of 3000 shocks were delivered. We delivered the shocks to the renal pelvis stone as well as the upper pole stone. Residual fragments may be remaining and required additional lithotripsy. The patient was uneventfully reversed from anesthesia, taken to recovery room in stable condition. No complications to the procedure. She tolerated the procedure well. Plans will be to perform a KUB in the near future to determine the success of this procedure and to determine the amount of stone burden remaining, to decide whether to perform another ESWL versus ureteroscopy with laser. Moreno Romano MD [place]/[facility] /[id number] cc: Rosalio Gongora MD
== END | disposition home or self-care (01) ==
LOC: OR 05:55
PROVIDERS: ATTEND Urology
DX: N20.0 Calculus of kidney (principal); Z96.0 Presence of urogenital implants; M19.90 Unspecified osteoarthritis, unspecified site; M54.9 Dorsalgia, unspecified; Z88.2 Allergy status to sulfonamides; C44.90 Unspecified malignant neoplasm of skin, unspecified
CPT/HCPCS: 36415; 50590; 74018; 80048; 83970; 84550; 85025; 93005; J0692; J1100; J1580; J2001; J2250; J2405; J2704; J3010

== ENCOUNTER → 2020-01-26 | Outpatient (CLI) | payer OTHER ==
[~2020-01-26] MED LIST changes: -B&O 60MG R/S 60 MG SUPP PR ONE; -CEFEPIME 1GM/NS 0.9% 50 ML 50 ML IV ONE; -DEXAMETHASONE SOD PHOS INJ 4 MG/ML VIAL ONE; -FENTANYL CITRATE/PF 100MCG/2 ML INJ ONE; -GENTAMICIN 80MG/NS 100 ML 200 ML IV ONE; -IOPAMIDOL 300MG/ML 50ML INFUS..BTL IV ONE; -LIDOCAINE HCL 2% LOCAL INJ 5 ML SDV VIAL INJ ONE; -MIDAZOLAM HCL 2 MG/2 ML VIAL ONE; -ONDANSETRON HCL INJ 2MG/ML 2ML 2 MG/ML VIAL ONE; -PROPOFOL IV EMULSION 10 MG/ML 20 ML VIAL ONE; -SEVOFLURANE INHAL SOLN 250 ML PEN BTL ONE
--- NOTE | 2020-01-26 10:12 | Diagnostic Imaging Report ---
Exam: KUB - 2 views Indication: Renal calculus Comparison: KUB of 01/19/2020 Findings: Left internal ureteral stent in good position. Scattered calcific densities overlying the left renal silhouette and measure up to 6 mm. Vague 4 mm calcific density overlying the right renal silhouette appears unchanged. Impression: Left internal nephroureteral stent in place. Bilateral renal calculi as before. Signed by: Riya Valdez MD on 01/26/2020 10:09 AM
== END ==
LOC: RAD 08:26
PROVIDERS: ATTEND Urology
DX: N20.0 Calculus of kidney (principal)
CPT/HCPCS: 74018

== ENCOUNTER → 2020-02-11 | Day surgery (SDC) | payer OTHER ==
[~2020-02-11] MED LIST changes: +B&O 60MG R/S 60 MG SUPP PR ONE; +CEFTRIAXONE SOD 1 GM/NS 50 ML 50 ML IV ONE; +DEXAMETHASONE SOD PHOS INJ 4 MG/ML VIAL ONE; +EPHEDRINE SULFATE INJ 50 MG/ML VIAL ONE; +FENTANYL CITRATE/PF 100MCG/2 ML INJ ONE; +GENTAMICIN 80MG/NS 100 ML 200 ML IV ONE; +IOPAMIDOL 300MG/ML 50ML INFUS..BTL IV ONE; +LIDOCAINE HCL 2% LOCAL INJ 5 ML SDV VIAL INJ ONE; +MIDAZOLAM HCL 2 MG/2 ML VIAL ONE; +ONDANSETRON HCL INJ 2MG/ML 2ML 2 MG/ML VIAL ONE; +PROPOFOL IV EMULSION 10 MG/ML 20 ML VIAL ONE; +SEVOFLURANE INHAL SOLN 250 ML PEN BTL ONE
[2020-02-11 16:00] VITALS: BP 140/70
--- NOTE | 2020-02-12 20:53 | Operative Report ---
DATE OF PROCEDURE: 02/11/2020 SURGEON: Moreno Romano MD PREOPERATIVE DIAGNOSES: 1. Left urolithiasis. 2. Left indwelling ureteral stent. POSTOPERATIVE DIAGNOSES: 1. Left nephrolithiasis. 2. Multiple left ureterolithiasis. 3. Left indwelling ureteral stent. 4. Grade 2 cephalad cystocele. 5. Grade 1 rectocele. 6. Atrophic (senile) vaginitis. OPERATIONS PERFORMED: Note, these were all staged procedures as part of multi- staged and multi-step process in managing the patient's urolithiasis. 1. Cystourethroscopy with complicated removal of left indwelling ureteral stent (separate procedure performed for the diagnosis of stent under separate scope). 2. Left semi-rigid ureteroscopy with stone manipulation and extraction of several residual left-sided ureteral stones done with the semi-rigid ureteroscope. 3. Left flexible ureteropyeloscopy with stone fragmentation and extraction and placement of stent (separate procedure performed for the multiple left nephrolithiasis done with the flexible ureteroscope). 4. Urological services with supervision and interpretation of ureteroscopy. 5. Interpretation of retrograde ureteropyelography. 6. Supervision of fluoroscopy, no radiologist present. 7. Pelvic examination under anesthesia surgeon. ANESTHESIA: General. COMPLICATIONS: None. CLINICAL SUMMARY: Ricardo Santos is a 65-year-old woman with extensive urolithiasis. She has undergone several procedures and is brought to the operating room today in hopes of rendering her stone free. She is aware of the risks of bleeding, infection, injury to adjacent structures, need for further procedures and elected to proceed. This procedure is not elective and needs to be performed during the COVID-19 emergency. She has numerous stones that will grow and cause additional problems if her procedure is delayed. She also had discomfort from her stent and delaying this procedure would increase her discomfort duration. OPERATIVE PROCEDURE IN DETAIL: Informed consent was verified, Ricardo Santos was properly identified, taken to the operating room, placed on the cystoscopy table in supine position. Anesthesia was uneventfully begun. The patient was then carefully gently repositioned in the dorsal lithotomy position with all pressure points well padded. Her genitalia were prepared and draped in usual sterile fashion. The cystoscope sheath with obturator in place was atraumatically inserted into the patient's urethra and the bladder was drained. Panendoscopy of the bladder revealed a stent emerging from the left ureteral orifice. There were numerous stone fragments present within the bladder prior to doing any manipulation. It was obvious the patient has been actively passing stones. A guidewire was then placed alongside the stent and guided to the level of the patient's kidney. The stent was then grasped completely removed and discarded. Semi-rigid ureteroscope was then inserted alongside the guidewire and guided into the patient's left ureter. Multiple stones were identified. The Nitinol tipless basket was utilized to extract one stone at that time, so several stones were removed. No additional stones were visualized as we evaluated the ureter. Contrast was injected as well. Flexible ureteroscopy sheath was then placed over the guidewire and guided through the proximal ureter. We then utilized a flexible ureteroscope to evaluate the kidney. The kidney had numerous stones. These stones appear relatively soft as we grasped some of the stones, we fragmented them. There were some stones that were caking the lower pole calyx and these were extracted off the calyx and fragmented with the basket as well. All significantly sized stone fragments were removed from the kidney. Only fine sand remained, that sand was irrigated to make sure it was loosened from the mucosa and should be passable. Following removal of the stone, guidewire was replaced. With cystoscope and fluoroscopic guidance, a left-sided indwelling ureteral stent was then placed, it was coiled in the patient's kidney as well as the patient's bladder. The retaining suture was cut short. Interpretation of retrograde ureteropyelography contrast was instilled in retrograde fashion on the left hand side. There was chronic-appearing hydronephrosis with calyceal blunting throughout. The patient has a bifid renal pelvis. The upper pole moiety inserts fairly low in the renal pelvis. The stent was in good position, coiled in the patient's kidneys as well as the patient's bladder at the end of the case with excellent decompression witness. The patient bladder was drained. Cystoscope was withdrawn. Pelvic examination under anesthesia revealed a grade 2 cystocele of the cephalad portion of the vagina. There was a grade 1 rectocele. There was no urethral hypermobility and there was atrophic (senile) vaginitis. The patient has had a previous cystocele repair and sling placement for severe prolapse that part of the repair appeared fairly intact. We will monitor the patient's cephalad cystocele on a long-term basis to determine whether additional repair will be warranted in the future. PLANS: Plans will be to follow the patient up in several weeks in the office for cystoscopy and stent removal. Moreno MD JACQUELINE Romano/KAROLINA /[id number] cc: Rosalio Gongora MD MTDD
== END | disposition home or self-care (01) ==
LOC: OR 07:48
PROVIDERS: ATTEND Urology
DX: N20.0 Calculus of kidney (principal); N20.1 Calculus of ureter; Z46.6 Encounter for fitting and adjustment of urinary device; N13.30 Unspecified hydronephrosis; N39.0 Urinary tract infection, site not specified; N81.10 Cystocele, unspecified; N81.6 Rectocele; N95.2 Postmenopausal atrophic vaginitis; M06.9 Rheumatoid arthritis, unspecified; Z88.2 Allergy status to sulfonamides; Z85.828 Personal history of other malignant neoplasm of skin; Z87.891 Personal history of nicotine dependence
CPT/HCPCS: 52356; 74420; 88300; C1766; C1769; C2617; J0696; J1100; J1580; J2001; J2250; J2405; J2704; J3010; Q9967

== ENCOUNTER → 2020-07-26 | Outpatient (CLI) | payer OTHER ==
[~2020-07-26] MED LIST changes: -B&O 60MG R/S 60 MG SUPP PR ONE; -CEFTRIAXONE SOD 1 GM/NS 50 ML 50 ML IV ONE; -DEXAMETHASONE SOD PHOS INJ 4 MG/ML VIAL ONE; -EPHEDRINE SULFATE INJ 50 MG/ML VIAL ONE; -FENTANYL CITRATE/PF 100MCG/2 ML INJ ONE; -GENTAMICIN 80MG/NS 100 ML 200 ML IV ONE; -IOPAMIDOL 300MG/ML 50ML INFUS..BTL IV ONE; -LIDOCAINE HCL 2% LOCAL INJ 5 ML SDV VIAL INJ ONE; -MIDAZOLAM HCL 2 MG/2 ML VIAL ONE; -ONDANSETRON HCL INJ 2MG/ML 2ML 2 MG/ML VIAL ONE; -PROPOFOL IV EMULSION 10 MG/ML 20 ML VIAL ONE; -SEVOFLURANE INHAL SOLN 250 ML PEN BTL ONE
--- NOTE | 2020-07-26 09:22 | Diagnostic Imaging Report ---
Abdomen, one view AP INDICATION: ^[id number] ^[id number] ^CALCULUS OF KIDNEY Comparison: 01/26/2020. Discussion: Previously identified left nephroureteral stent has been removed. Previously identified multiple left-sided renal calculi are not as well-visualized on today's examination. Linear calcification at the midpole the right kidney measuring up to 4 mm is noted. Stable cholecystectomy changes. Small bowel loops are not dilated. No acute osseous abnormality. IMPRESSION: Interval removal of the left internal ureteral stent. Previously identified calcific densities projecting over the left renal shadow are not visualized. Linear density projecting over the right renal shadow measuring up to 4 mm at the interpolar region could relate to a nonobstructive calculus versus debris within the adjacent colon. Signed by: Luiz Mcgregor MD on 07/26/2020 9:19 AM
== END ==
LOC: RAD 08:34
PROVIDERS: ATTEND Urology
DX: N20.0 Calculus of kidney (principal)
CPT/HCPCS: 74018

== ENCOUNTER → 2020-11-03 | Outpatient (CLI) | payer OTHER | LOC: RAD 07:55 | PROVIDERS: ATTEND Urology | DX: N20.0 Calculus of kidney (principal) | CPT/HCPCS: 74018 ==

== ENCOUNTER → 2021-12-11 | Outpatient (CLI) | payer OTHER | LOC: RAD 09:53 | PROVIDERS: ATTEND Urology | DX: N20.0 Calculus of kidney (principal) | CPT/HCPCS: 74018 ==

== ENCOUNTER 2022-01-11 07:36 | Observation (INO) | payer OTHER ==
[~2022-01-11] VITALS: Ht 165.1 cm; Wt 67.6 kg
[2022-01-11] MEDS ORDERED: SODIUM CHLORIDE 0.9% 1000ML 1,000 ML IV STA (07:57)
[2022-01-11] MEDS ORDERED: KETOROLAC TROMETHAMINE 30 MG/ML VIAL IV STA (07:57)
[2022-01-11] MEDS ORDERED: ONDANSETRON HCL INJ 2MG/ML 2ML 2 MG/ML VIAL IV STA (07:57)
[2022-01-11] MEDS ORDERED: Morphine 4mg Syringe 4 MG/ML INJ IV STA (07:57)
[2022-01-11 08:43] LABS: BASOPHILS # (AUTO) 0.1 (0.0-0.1); BASOPHILS % 0.6 % (0.0-1.0); EOSINOPHILS % 0.4 % (0.0-6.0); HEMATOCRIT 42.9 % (34.2-44.1); LYMPHOCYTES # (AUTO) 2.2 (1.0-3.2); LYMPHOCYTES % 23.1 % (18.0-39.1); MEAN CORPUSCULAR HEMOGLOBIN 31.7 pg (28-32); MEAN CORPUSCULAR HGB CONC 32.6 g/dL (31-35); MEAN CORPUSCULAR VOLUME 97.3 fL (81-99); MONOCYTES # (AUTO) 0.7 (0.2-0.8); MONOCYTES % 7.8 % (4.4-11.3); NEUTROPHILS # (AUTO) 6.3 (2.1-6.9); NEUTROPHILS % 67.7 % (38.7-80.0); PLATELET COUNT 258 x10e3/uL (140-360); RED BLOOD COUNT 4.41 x10e6/uL (3.6-5.1); RED CELL DISTRIBUTION WIDTH 12.8 % (11.7-14.4)
[2022-01-11 08:46] LABS: CLARITY,URINE TURBID (CLEAR); COLOR,URINE YELLOW (YELLOW); KETONES,URINE NEGATIVE (NEGATIVE); LEUKOCYTE ESTERASE ,URINE MODERATE (NEGATIVE); NITRITE,URINE NEGATIVE (NEGATIVE); PROTEIN,URINE DIPSTICK NEGATIVE (NEGATIVE)
[2022-01-11 08:47] LABS: URINE UROBILINOGEN 0.2 mg/dL (0.2 - 1)
[2022-01-11 08:54] LABS: WBC,URINE (MAN) >50 /HPF (0-5)
[2022-01-11 08:55] LABS: BACTERIA,URINE FEW /HPF; EPITHELIAL CELLS,URINE FEW /LPF
[2022-01-11 09:01] LABS: ALANINE AMINOTRANSFERASE 18 IU/L (0-55); ALBUMIN/GLOBULIN RATIO 1.1 (0.8-2.0); ALKALINE PHOSPHATASE 109 IU/L (40-150); ANION GAP 11.8 mmol/L (8-16); BLOOD UREA NITROGEN 16 mg/dL (7-26); BUN/CREATININE RATIO 20 (6-25); CALCIUM 9.4 mg/dL (8.4-10.2); CARBON DIOXIDE 28 mmol/L (22-29); CHLORIDE 105 mmol/L (98-107); CREATINE KINASE 40 IU/L (29-168); EST GLOMERULAR FILTRATION RATE 72 ML/MIN (60-); GLUCOSE 89 mg/dL (74-118); LIPASE 194 U/L (8-78); MAGNESIUM 1.9 MG/DL (1.3-2.1); POTASSIUM 3.8 mmol/L (3.5-5.1); SODIUM 141 mmol/L (136-145)
[2022-01-11] MEDS ORDERED: Morphine 4mg Syringe 4 MG/ML INJ IV PRN (09:45)
[2022-01-11] MEDS ORDERED: ONDANSETRON HCL INJ 2MG/ML 2ML 2 MG/ML VIAL IV PRN (09:45)
[2022-01-11] MEDS: SODIUM CHLORIDE 0.9% 1000ML 1,000 ML IV SCH ×2 (11:10→19:45)
[2022-01-11] MEDS: MEROPENEM 1 GM in SODIUM CHLORIDE 0.9% 100 ML IV SCH ×2 (11:10→18:00)
[2022-01-11 11:41] LABS: CHOL/HDL RATIO 3.5 (3.0-3.6)
[2022-01-11 12:33] VITALS: BP 134/80
[2022-01-11 12:45] VITALS: BP_SYST 134; BP_SYST 138; BP_DIAS 80
[2022-01-11 16:06] VITALS: BP 131/67
[2022-01-11 19:30] VITALS: BP 122/59
[2022-01-11 20:00] VITALS: BP 122/59
[2022-01-11] MEDS: ACETAMINOPHEN 325 MG TAB PO PRN (23:15)
[2022-01-12] VITALS (8 sets, daily range): BP systolic 118–139; BP diastolic 60–74
[2022-01-12] MEDS: MEROPENEM 1 GM in SODIUM CHLORIDE 0.9% 100 ML IV SCH ×3 (02:00→17:07)
[2022-01-12] MEDS: SODIUM CHLORIDE 0.9% 1000ML 1,000 ML IV SCH ×2 (05:45→15:49)
[2022-01-12] MEDS: ACETAMINOPHEN 325 MG TAB PO PRN ×2 (05:56→22:17)
[2022-01-12 06:14] LABS: BASOPHILS % 0.6 % (0.0-1.0); EOSINOPHILS # (AUTO) 0.1 (0.0-0.4); EOSINOPHILS % 1.3 % (0.0-6.0); HEMATOCRIT 35.5 % (34.2-44.1); HEMOGLOBIN 11.2 g/dL (12.0-16.0); LYMPHOCYTES # (AUTO) 1.4 (1.0-3.2); LYMPHOCYTES % 26.6 % (18.0-39.1); MEAN CORPUSCULAR HEMOGLOBIN 31.5 pg (28-32); MEAN CORPUSCULAR HGB CONC 31.5 g/dL (31-35); MEAN CORPUSCULAR VOLUME 99.7 fL (81-99); MONOCYTES # (AUTO) 0.6 (0.2-0.8); MONOCYTES % 11.3 % (4.4-11.3); NEUTROPHILS # (AUTO) 3.3 (2.1-6.9); PLATELET COUNT 180 x10e3/uL (140-360); RED BLOOD COUNT 3.56 x10e6/uL (3.6-5.1); RED CELL DISTRIBUTION WIDTH 12.9 % (11.7-14.4)
[2022-01-12 06:42] LABS: ALBUMIN 2.9 g/dL (3.5-5.0); ALBUMIN/GLOBULIN RATIO 1.1 (0.8-2.0); ANION GAP 7.2 mmol/L (8-16); CALCIUM 8.2 mg/dL (8.4-10.2); CREATININE, SERUM 0.73 mg/dL (0.57-1.11); POTASSIUM 4.2 mmol/L (3.5-5.1)
[2022-01-12] MEDS: OXYBUTYNIN CHLORIDE XL 5 MG TAB PO SCH ×3 (09:17→21:00)
[2022-01-13] VITALS: BP 128/61
[2022-01-13 00:50] VITALS: BP 128/61
[2022-01-13] MEDS: SODIUM CHLORIDE 0.9% 1000ML 1,000 ML IV SCH (01:25)
[2022-01-13] MEDS: MEROPENEM 1 GM in SODIUM CHLORIDE 0.9% 100 ML IV SCH (01:33)
[2022-01-13 04:00] VITALS: BP 136/82
[2022-01-13] MEDS: ACETAMINOPHEN 325 MG TAB PO PRN (05:40)
[2022-01-13 07:51] VITALS: BP 129/75
[2022-01-13 07:52] VITALS: BP 129/75
[2022-01-13] MEDS: OXYBUTYNIN CHLORIDE XL 5 MG TAB PO SCH (08:38)
== END 2022-01-13 10:07 | disposition home or self-care (01) ==
LOC: ER 07:48 → ERHOLD 09:39 → INTOOBSV 09:39 → MED/SURG3 12:23
PROVIDERS: ADMIT Internal Medicine; ATTEND Internal Medicine
DX: K85.90 Acute pancreatitis without necrosis or infection, unspecified (principal); R32 Unspecified urinary incontinence; Z20.822 Contact with and (suspected) exposure to COVID-19; D64.9 Anemia, unspecified; I10 Essential (primary) hypertension
CPT/HCPCS: 36415 ×2; 74176; 80053 ×2; 80061; 81001; 82550; 82553; 83690; 83735; 84484; 85025 ×2; 87086; 87186; 93005; 94799 ×2; 99284; G0378 ×3; J1885; J2185 ×3; J2270; J2405; J7030 ×2; J7050 ×3; U0002

== ENCOUNTER → 2022-05-20 | Outpatient (CLI) | payer OTHER | LOC: RAD 12:55 | PROVIDERS: ATTEND Urology | DX: N20.0 Calculus of kidney (principal) | CPT/HCPCS: 74018 ==

== ENCOUNTER → 2022-09-23 | Outpatient (CLI) | payer OTHER | LOC: CT 15:28 | PROVIDERS: ATTEND Urology | DX: N13.30 Unspecified hydronephrosis (principal) | CPT/HCPCS: 74176 ==

== ENCOUNTER → 2022-11-27 | Day surgery (SDC) | payer OTHER ==
[2022-11-25 15:40] LABS: BASOPHILS # (AUTO) 0.1 (0.0-0.1); BASOPHILS % 0.6 % (0.0-1.0); EOSINOPHILS # (AUTO) 0.3 (0.0-0.4); EOSINOPHILS % 3.9 % (0.0-6.0); HEMATOCRIT 41.4 % (34.2-44.1); HEMOGLOBIN 12.6 g/dL (12.0-16.0); LYMPHOCYTES # (AUTO) 2.4 (1.0-3.2); LYMPHOCYTES % 28.3 % (18.0-39.1); MEAN CORPUSCULAR HGB CONC 30.4 g/dL (31-35); MEAN CORPUSCULAR VOLUME 101.7 fL (81-99); MONOCYTES # (AUTO) 0.7 (0.2-0.8); MONOCYTES % 8.6 % (4.4-11.3); NEUTROPHILS % 58.2 % (38.7-80.0); PLATELET COUNT 228 x10e3/uL (140-360); RED BLOOD COUNT 4.07 x10e6/uL (3.6-5.1); RED CELL DISTRIBUTION WIDTH 12.5 % (11.7-14.4)
[2022-11-25 15:57] LABS: ANION GAP 12.7 mmol/L (8-16); CALCIUM 9.2 mg/dL (8.4-10.2); CREATININE, SERUM 0.69 mg/dL (0.57-1.11); POTASSIUM 3.7 mmol/L (3.5-5.1)
[~2022-11-27] MED LIST changes: +ACETAMINOPHEN 1000 MG/100 ML 100 ML IV ONE; +CEFTRIAXONE 1 GM VIAL ONE; +DEXAMETHASONE SOD PHOS INJ 4 MG/ML SDV ONE; +EPHEDRINE SULFATE INJ 50 MG/ML VIAL ONE; +FAMOTIDINE 20 MG/2 ML VIAL IV ONE; +FENTANYL CITRATE/PF 100MCG/2 ML INJ ONE; +LIDOCAINE HCL 2% LOCAL INJ 5 ML SDV VIAL INJ ONE; +METHENAMINE HIPP1 GM PO; +MIDAZOLAM HCL 2 MG/2 ML VIAL ONE; +ONDANSETRON HCL INJ 2MG/ML 2ML 2 MG/ML VIAL ONE; +POVIDONE IODINE 0.05% 0.05 % ML PO ONE; +PROPOFOL IV EMULSION 10 MG/ML 20 ML VIAL ONE; +SCOPOLAMINE 1 MG PATCH ONE; +SEVOFLURANE INHAL SOLN 250 ML PEN BTL ONE; +SODIUM CHLORIDE 0.9% 250ML 250 ML ONE
[2022-11-27 11:46] VITALS: BP 129/70
== END | disposition home or self-care (01) ==
LOC: OR 07:06
PROVIDERS: ATTEND Urology
DX: N20.0 Calculus of kidney (principal); N20.1 Calculus of ureter; N39.0 Urinary tract infection, site not specified; N81.10 Cystocele, unspecified; N81.6 Rectocele; N95.2 Postmenopausal atrophic vaginitis; N32.81 Overactive bladder; N81.89 Other female genital prolapse; R35.1 Nocturia; N39.3 Stress incontinence (female) (male); Z88.2 Allergy status to sulfonamides; Z01.810 Encounter for preprocedural cardiovascular examination; Z01.812 Encounter for preprocedural laboratory examination; Z01.818 Encounter for other preprocedural examination; Z84.1 Family history of disorders of kidney and ureter
CPT/HCPCS: 36415; 50590; 71046; 74018; 80048; 83970; 84550; 85025; 87086; 93005; C1758; J0131; J0696; J1100; J2001; J2250; J2405; J2704; J3010; J7050

== ENCOUNTER → 2023-02-14 | Day surgery (SDC) | payer OTHER ==
[2023-02-12 10:18] LABS: BASOPHILS # (AUTO) 0.1 (0.0-0.1); BASOPHILS % 0.7 % (0.0-1.0); EOSINOPHILS # (AUTO) 0.1 (0.0-0.4); EOSINOPHILS % 1.1 % (0.0-6.0); HEMATOCRIT 38.4 % (34.2-44.1); HEMOGLOBIN 12.4 g/dL (12.0-16.0); LYMPHOCYTES # (AUTO) 3.1 (1.0-3.2); MEAN CORPUSCULAR HEMOGLOBIN 31.4 pg (28-32); MEAN CORPUSCULAR HGB CONC 32.3 g/dL (31-35); MEAN CORPUSCULAR VOLUME 97.2 fL (81-99); MONOCYTES # (AUTO) 0.7 (0.2-0.8); MONOCYTES % 7.8 % (4.4-11.3); NEUTROPHILS # (AUTO) 5.1 (2.1-6.9); NEUTROPHILS % 56.2 % (38.7-80.0); PLATELET COUNT 190 x10e3/uL (140-360); RED BLOOD COUNT 3.95 x10e6/uL (3.6-5.1); RED CELL DISTRIBUTION WIDTH 13.2 % (11.7-14.4)
[2023-02-12 10:36] LABS: ANION GAP 14.5 mmol/L (8-16); CALCIUM 9.5 mg/dL (8.4-10.2); CREATININE, SERUM 0.72 mg/dL (0.57-1.11); POTASSIUM 4.5 mmol/L (3.5-5.1)
[~2023-02-14] MED LIST changes: -ACETAMINOPHEN 1000 MG/100 ML 100 ML IV ONE; +IOPAMIDOL 610MG/1ML 300 MG/ML VIAL IV ONE; +LACTATED RINGER'S 1,000 ML ONE; +PHENYLEPHRINE HCL 1% 10 MG/ML VIAL ONE; -SODIUM CHLORIDE 0.9% 250ML 250 ML ONE
[2023-02-14 10:45] VITALS: BP 135/75
== END | disposition home or self-care (01) ==
LOC: OR 05:58
PROVIDERS: ATTEND Urology
DX: N20.0 Calculus of kidney (principal); N20.1 Calculus of ureter; N39.0 Urinary tract infection, site not specified; N81.89 Other female genital prolapse; N32.81 Overactive bladder; N39.3 Stress incontinence (female) (male); N81.6 Rectocele; R35.1 Nocturia; N95.2 Postmenopausal atrophic vaginitis; Z88.2 Allergy status to sulfonamides; Z01.812 Encounter for preprocedural laboratory examination; Z01.818 Encounter for other preprocedural examination; Z84.1 Family history of disorders of kidney and ureter
CPT/HCPCS: 36415; 50590; 74018; 80048; 84550; 85025; J0696; J1100; J2001; J2250; J2370; J2405; J2704; J3010; J7121; Q9967

== ENCOUNTER → 2024-07-20 | Outpatient (REF) | payer MEDICARE ==
[~2024-07-20] MED LIST changes: -CEFTRIAXONE 1 GM VIAL ONE; -DEXAMETHASONE SOD PHOS INJ 4 MG/ML SDV ONE; -EPHEDRINE SULFATE INJ 50 MG/ML VIAL ONE; -FAMOTIDINE 20 MG/2 ML VIAL IV ONE; -FENTANYL CITRATE/PF 100MCG/2 ML INJ ONE; -IOPAMIDOL 610MG/1ML 300 MG/ML VIAL IV ONE; -LACTATED RINGER'S 1,000 ML ONE; -LIDOCAINE HCL 2% LOCAL INJ 5 ML SDV VIAL INJ ONE; -MIDAZOLAM HCL 2 MG/2 ML VIAL ONE; -ONDANSETRON HCL INJ 2MG/ML 2ML 2 MG/ML VIAL ONE; -PHENYLEPHRINE HCL 1% 10 MG/ML VIAL ONE; -POVIDONE IODINE 0.05% 0.05 % ML PO ONE; -PROPOFOL IV EMULSION 10 MG/ML 20 ML VIAL ONE; -SCOPOLAMINE 1 MG PATCH ONE; -SEVOFLURANE INHAL SOLN 250 ML PEN BTL ONE
== END ==
LOC: RAD 09:34
PROVIDERS: ATTEND Urology
DX: N20.0 Calculus of kidney (principal)
CPT/HCPCS: 74018

== ENCOUNTER 2025-03-27 16:19 | Inpatient (IN) | payer MEDICARE ==
[~2025-03-27] VITALS: Ht 165.1 cm; Wt 59.0 kg
[2025-03-27 16:29] VITALS: RESP 18; TEMP 98
[2025-03-27 16:52] LABS: BASOPHILS % 0.5 % (0.0-1.0); EOSINOPHILS # (AUTO) 0.1 (0.0-0.4); EOSINOPHILS % 2.1 % (0.0-6.0); HEMATOCRIT 38.9 % (34.2-44.1); HEMOGLOBIN 12.8 g/dL (12.0-16.0); LYMPHOCYTES # (AUTO) 2.2 (1.0-3.2); LYMPHOCYTES % 34.8 % (18.0-39.1); MEAN CORPUSCULAR HEMOGLOBIN 31.2 pg (28-32); MEAN CORPUSCULAR HGB CONC 32.9 g/dL (31-35); MEAN CORPUSCULAR VOLUME 94.9 fL (81-99); MONOCYTES # (AUTO) 0.7 (0.2-0.8); MONOCYTES % 10.5 % (4.4-11.3); NEUTROPHILS # (AUTO) 3.3 (2.1-6.9); NEUTROPHILS % 51.8 % (38.7-80.0); PLATELET COUNT 213 x10e3/uL (140-360); RED CELL DISTRIBUTION WIDTH 13.1 % (11.7-14.4); WHITE BLOOD COUNT 6.27 x10e3/uL (4.8-10.8)
[2025-03-27 16:54] LABS: CLARITY,URINE CLEAR (CLEAR); COLOR,URINE YELLOW (YELLOW); GLUCOSE, URINE NEGATIVE (NEGATIVE); KETONES,URINE NEGATIVE (NEGATIVE); LEUKOCYTE ESTERASE ,URINE 1+ (NEGATIVE); NITRITE,URINE NEGATIVE (NEGATIVE); PH,URINE 6 (5 - 7); PROTEIN,URINE DIPSTICK NEGATIVE (NEGATIVE); URINE UROBILINOGEN 0.2 mg/dL (0.2 - 1)
[2025-03-27 16:55] LABS: BILIRUBIN,URINE NEGATIVE (NEGATIVE)
[2025-03-27] MEDS: SODIUM CHLORIDE 0.9% 1000ML 1,000 ML IV STA (17:03)
[2025-03-27] MEDS: ONDANSETRON HCL INJ 2MG/ML 2ML 2 MG/ML VIAL IV PRN (17:03)
[2025-03-27] MEDS: KETOROLAC TROMETHAMINE 30 MG/ML VIAL IV STA (17:03)
[2025-03-27 17:14] LABS: ALBUMIN/GLOBULIN RATIO 1.1 (0.8-2.0); ANION GAP 14.7 mmol/L (8-16); BACTERIA,URINE FEW /HPF; BILIRUBIN,TOTAL 0.6 mg/dL (0.2-1.2); CALCIUM 9.2 mg/dL (8.4-10.2); CREATININE, SERUM 0.75 mg/dL (0.57-1.11); EPITHELIAL CELLS,URINE FEW /LPF; POTASSIUM 3.7 mmol/L (3.5-5.1); TOTAL PROTEIN 7.5 g/dL (6.5-8.1); WBC,URINE (MAN) 21-50 /HPF (0-5)
[2025-03-27] MEDS ORDERED: IOPAMIDOL 370 MG/ML 100 ML INFUS..BTL INJ ONE (17:26)
[2025-03-27 18:00] VITALS: PULSE 90
[2025-03-27] MEDS ORDERED: ONDANSETRON HCL INJ 2MG/ML 2ML 2 MG/ML VIAL IV PRN (18:30)
[2025-03-27] MEDS: SODIUM CHLORIDE 0.9% 1000ML 1,000 ML IV SCH (18:45)
[2025-03-27 20:00] VITALS: BP 148/69; PULSE 66; RESP 18; TEMP 97.7; O2SAT 100
[2025-03-27 22:16] VITALS: PULSE 65; RESP 18; O2SAT 96
[2025-03-28] VITALS (8 sets, daily range): BP systolic 105–145; BP diastolic 60–74; PULSE 50–77; RESP 16–20; TEMP 97.6–98.1; O2SAT 94–98
[2025-03-28 06:06] LABS: BASOPHILS % 0.6 % (0.0-1.0); EOSINOPHILS # (AUTO) 0.2 (0.0-0.4); EOSINOPHILS % 2.9 % (0.0-6.0); HEMATOCRIT 32.9 % (34.2-44.1); HEMOGLOBIN 10.6 g/dL (12.0-16.0); LYMPHOCYTES # (AUTO) 1.9 (1.0-3.2); LYMPHOCYTES % 36.5 % (18.0-39.1); MEAN CORPUSCULAR HGB CONC 32.2 g/dL (31-35); MEAN CORPUSCULAR VOLUME 96.2 fL (81-99); MONOCYTES # (AUTO) 0.7 (0.2-0.8); MONOCYTES % 13.3 % (4.4-11.3); NEUTROPHILS # (AUTO) 2.4 (2.1-6.9); NEUTROPHILS % 46.3 % (38.7-80.0); PLATELET COUNT 165 x10e3/uL (140-360); RED BLOOD COUNT 3.42 x10e6/uL (3.6-5.1); RED CELL DISTRIBUTION WIDTH 13.2 % (11.7-14.4); WHITE BLOOD COUNT 5.12 x10e3/uL (4.8-10.8)
[2025-03-28 06:43] LABS: ALBUMIN/GLOBULIN RATIO 1.2 (0.8-2.0); ANION GAP 10.7 mmol/L (8-16); BILIRUBIN,TOTAL 0.5 mg/dL (0.2-1.2); CALCIUM 8.2 mg/dL (8.4-10.2); CREATININE, SERUM 0.64 mg/dL (0.57-1.11); POTASSIUM 3.7 mmol/L (3.5-5.1); TOTAL PROTEIN 5.6 g/dL (6.5-8.1)
[2025-03-28] MEDS: Morphine 4mg INJECTION 4 MG/ML INJ IV PRN (11:04)
[2025-03-29] VITALS (8 sets, daily range): BP systolic 121–159; BP diastolic 66–79; PULSE 65–81; RESP 18–20; TEMP 96.7–97.9; O2SAT 96–100
[2025-03-29 05:49] LABS: BASOPHILS % 0.6 % (0.0-1.0); EOSINOPHILS # (AUTO) 0.2 (0.0-0.4); EOSINOPHILS % 3.4 % (0.0-6.0); HEMOGLOBIN 11.7 g/dL (12.0-16.0); LYMPHOCYTES # (AUTO) 1.9 (1.0-3.2); MEAN CORPUSCULAR HEMOGLOBIN 31.5 pg (28-32); MEAN CORPUSCULAR HGB CONC 32.5 g/dL (31-35); MEAN CORPUSCULAR VOLUME 96.8 fL (81-99); MONOCYTES # (AUTO) 0.6 (0.2-0.8); MONOCYTES % 9.4 % (4.4-11.3); NEUTROPHILS # (AUTO) 3.4 (2.1-6.9); NEUTROPHILS % 55.1 % (38.7-80.0); PLATELET COUNT 184 x10e3/uL (140-360); RED BLOOD COUNT 3.72 x10e6/uL (3.6-5.1); RED CELL DISTRIBUTION WIDTH 13.2 % (11.7-14.4); WHITE BLOOD COUNT 6.16 x10e3/uL (4.8-10.8)
[2025-03-29 06:32] LABS: ALBUMIN 3.5 g/dL (3.5-5.0); ALBUMIN/GLOBULIN RATIO 1.2 (0.8-2.0); ANION GAP 14.1 mmol/L (8-16); BILIRUBIN,TOTAL 0.4 mg/dL (0.2-1.2); CALCIUM 8.7 mg/dL (8.4-10.2); CREATININE, SERUM 0.64 mg/dL (0.57-1.11); POTASSIUM 4.1 mmol/L (3.5-5.1); TOTAL PROTEIN 6.4 g/dL (6.5-8.1)
[2025-03-29] MEDS: ACETAMINOPHEN 325 MG TAB PO PRN (20:44)
[2025-03-30] VITALS (7 sets, daily range): BP systolic 137–154; BP diastolic 73–94; PULSE 65–110; RESP 17–19; TEMP 97.5–98.2; O2SAT 96–100
[2025-03-30] MEDS ORDERED: PROPOFOL IV EMULSION 10 MG/ML 20 ML VIAL ONE (13:38)
[2025-03-30] MEDS ORDERED: LIDOCAINE HCL 2% LOCAL INJ 5 ML SDV VIAL INJ ONE (13:38)
[2025-03-30] MEDS ORDERED: FENTANYL CITRATE/PF 100MCG/2 ML INJ ONE (13:41)
[2025-03-30] MEDS ORDERED: DEXAMETHASONE SOD PHOS INJ 4 MG/ML SDV ONE (13:48)
[2025-03-30] MEDS ORDERED: ONDANSETRON HCL INJ 2MG/ML 2ML 2 MG/ML VIAL ONE (13:48)
[2025-03-30] MEDS ORDERED: EPHEDRINE SULFATE INJ 50 MG/ML VIAL ONE (13:48)
[2025-03-30] MEDS ORDERED: KETOROLAC TROMETHAMINE 30 MG/ML VIAL ONE (14:18)
[2025-03-30] MEDS: ACETAMINOPHEN/CODEINE 300MG - 30MG TAB PO PRN (17:17)
[2025-03-30] MEDS: PHENAZOPYRIDINE HCL 100 MG TAB PO PRN (17:17)
[2025-03-31] VITALS: BP 129/67; PULSE 72; RESP 18; TEMP 98.6; O2SAT 96
[2025-03-31 04:00] VITALS: BP 132/70; PULSE 85; RESP 18; TEMP 98.2; O2SAT 97
[2025-03-31 08:12] LABS: BASOPHILS % 0.1 % (0.0-1.0); HEMATOCRIT 33.4 % (34.2-44.1); LYMPHOCYTES # (AUTO) 1.9 (1.0-3.2); LYMPHOCYTES % 22.1 % (18.0-39.1); MEAN CORPUSCULAR HEMOGLOBIN 31.2 pg (28-32); MEAN CORPUSCULAR HGB CONC 32.9 g/dL (31-35); MEAN CORPUSCULAR VOLUME 94.6 fL (81-99); MONOCYTES # (AUTO) 0.8 (0.2-0.8); MONOCYTES % 9.3 % (4.4-11.3); NEUTROPHILS # (AUTO) 5.8 (2.1-6.9); NEUTROPHILS % 67.9 % (38.7-80.0); PLATELET COUNT 183 x10e3/uL (140-360); RED BLOOD COUNT 3.53 x10e6/uL (3.6-5.1); RED CELL DISTRIBUTION WIDTH 13.2 % (11.7-14.4); WHITE BLOOD COUNT 8.47 x10e3/uL (4.8-10.8)
[2025-03-31 08:43] VITALS: BP 127/94; PULSE 78; RESP 18; TEMP 97.7; O2SAT 98
[2025-03-31 08:44] LABS: ANION GAP 10.8 mmol/L (8-16); CALCIUM 8.6 mg/dL (8.4-10.2); CREATININE, SERUM 0.7 mg/dL (0.57-1.11); POTASSIUM 3.8 mmol/L (3.5-5.1)
[2025-03-31 09:38] VITALS: BP 127/94; PULSE 78; RESP 18; TEMP 97.7; O2SAT 98
[2025-03-31] MEDS ORDERED: KETOROLAC TROME10 MG (11:35)
[2025-03-31 12:35] VITALS: BP 147/68; PULSE 80; RESP 17; TEMP 97.7; O2SAT 100
== END 2025-03-31 12:35 | disposition home or self-care (01) | DRG 661 ==
LOC: ER 16:24 → ERHOLD 18:28 → MED/SURG3 20:02
PROVIDERS: ADMIT Internal Medicine; ATTEND Internal Medicine
PROC: BT140ZZ Fluoroscopy of Kidneys, Ureters and Bladder using High Osmolar Contrast (ICD-10-PCS; 2025-03-30)
PROC: 0TC78ZZ Extirpation of Matter from Left Ureter, Via Natural or Artificial Opening Endoscopic (ICD-10-PCS; 2025-03-30)
PROC: 0WJR7ZZ Inspection of Genitourinary Tract, Via Natural or Artificial Opening Approach (ICD-10-PCS; 2025-03-30)
PROC: 0T778DZ Dilation of Left Ureter with Intraluminal Device, Via Natural or Artificial Opening Endoscopic (ICD-10-PCS; principal; 2025-03-30 13:36)
PROC: 0T7D8ZZ Dilation of Urethra, Via Natural or Artificial Opening Endoscopic (ICD-10-PCS; 2025-03-30 13:36)
DX: N13.6 Pyonephrosis (principal); M19.90 Unspecified osteoarthritis, unspecified site; I10 Essential (primary) hypertension; D64.9 Anemia, unspecified; R31.29 Other microscopic hematuria; N35.92 Unspecified urethral stricture, female; N81.3 Complete uterovaginal prolapse; N95.2 Postmenopausal atrophic vaginitis; N32.89 Other specified disorders of bladder; Z88.2 Allergy status to sulfonamides; Z82.49 Family history of ischemic heart disease and other diseases of the circulatory system
CPT/HCPCS: 36415; 74177; 74420; 80048; 80053; 81001; 83690; 85025; 87086; 88300; 94799; 96361; 99284; C1758; C1769; C2617; J0696; J1100; J1885; J2003; J2270; J2405; J7030; Q9967